=== PATIENT | female | born 1995 | race Caucasian/White ===

== ENCOUNTER 2019-04-05 17:49 | Emergency (ER) | payer MEDICAID ==
[~2019-04-05] VITALS: Ht 170.2 cm; Wt 77.8 kg
[2019-04-05 18:40] VITALS: Ht 170.2 cm; Wt 77.8 kg
[2019-04-05 19:27] LABS: BASOPHIL % 0.3 % (0-2); PLATELET COUNT 258 x10^3mcL (130-400); RED CELL DISTRIBUTION WIDTH 12.7 % (11.5-14.5)
[2019-04-05 20:16] VITALS: BP 127/81
== END 2019-04-05 21:17 | disposition home or self-care (01) ==
LOC: ED 17:49
PROVIDERS: Emergency Medicine
DX: O20.0 Threatened abortion (principal); Z3A.08 8 weeks gestation of pregnancy
CPT/HCPCS: 36415; Q0092

== ENCOUNTER 2019-08-31 14:03 | Emergency (ER) | payer MEDICAID ==
[~2019-08-31] VITALS: Ht 170.2 cm; Wt 79.8 kg
[2019-08-31 15:07] VITALS: Ht 170.2 cm; Wt 79.8 kg
[2019-08-31 17:02] LABS: BASOPHIL % 0.4 % (0-2); PLATELET COUNT 279 x10^3mcL (130-400); RED CELL DISTRIBUTION WIDTH 12.9 % (11.5-14.5)
[2019-08-31 19:17] LABS: UA SPECIFIC GRAVITY >=1.030 (1.005-1.035); microscopic required? YES; urine erythrocyte 3+ (NEGATIVE)
[2019-08-31 20:30] VITALS: BP 110/79
== END 2019-08-31 20:30 | disposition home or self-care (01) ==
LOC: ED 14:03
PROVIDERS: Emergency Medicine
DX: O02.1 Missed abortion (principal)
CPT/HCPCS: 36415; 87491; 87591